=== PATIENT | male | born 1950 | race Two or more races ===

== ENCOUNTER 2017-02-13 09:01 | Inpatient (IN) | payer OTHER, MEDICAID ==
--- NOTE | 2017-02-13 09:17 | CPEKG ---
Heart Rate: 64 RR Interval: 938 P-R Interval: 196 QRSD Interval: 162 QT Interval: 456 QTC Interval: 471 P [place]: 68 QRS [place]: 48 T Wave [place]: 13 EKG Severity - ABNORMAL ECG - EKG Impression: SINUS RHYTHM EKG Impression: ATRIAL PREMATURE COMPLEX EKG Impression: RIGHT BUNDLE BRANCH BLOCK Electronically Signed By: Abby Garcia 13-Feb-2017 14:51:53
--- NOTE | 2017-02-13 09:28 | EDPHY ---
H & P Time Seen by Provider: 02/13/17 09:15 HPI/ROS: CHIEF COMPLAINT: Shortness of breath HISTORY OF PRESENT ILLNESS: Patient is a 66-year-old male with a history of AFib and a flutter status post ablation who presents emergency department with shortness of breath and dizziness. The patient states that in the past when he has had the symptoms it has been related to his atrial fibrillation and he has need cardioversion previously. Patient states his symptoms started roughly 2-3 days ago when he arrived in [place]. He took the train from [facility]. He has had no chest pain. He denies neck pain or arm discomfort. He has no leg pain or swelling. He has had no recent cough or fever. He denies palpitations, but states he has not had palpitations in the past with atrial fibrillation. REVIEW OF SYSTEMS: My complete review of systems is negative except as mentioned in the HPI. Past Medical/Surgical History: Includes atrial flutter and atrial fibrillation, depression, asthma, hypertension, melanoma Past surgical history: Ablation, bariatric surgery, tonsillectomy Social history: The patient is from [facility]. He does not smoke. Smoking Status: Former smoker Physical Exam: Vitals noted. 126/88, 72, 97% on room air GENERAL: Well-appearing, in no acute distress, alert. HEENT: Eyes normal to inspection, normal pharynx, no signs of dehydration. NECK: No thyromegaly, no lymphadenopathy, supple. RESPIRATORY: Clear to auscultation bilaterally, no rales, rhonchi or wheezing. CVS: Regular rate and rhythm, no rubs, murmurs, or gallops. ABDOMEN: Soft, nontender, nondistended, no organomegaly. Midline abdominal scar. BACK: Normal to inspection, no CVA tenderness. Surgical scar. SKIN: Normal color, no rash, warm, dry. No pallor. EXTREMITIES: No pedal edema, no calf tenderness, no Homans sign or cords, no joint swelling. NEURO/PSYCH: Alert and oriented x3, normal mood and affect, normal motor sensory exam. No obvious cranial nerve deficit. Constitutional: Initial Vital Signs Temperature (C) 36.2 C 02/13/17 09:17 Heart Rate 71 02/13/17 09:17 Respiratory Rate 20 02/13/17 09:17 Blood Pressure 174/97 H 02/13/17 09:17 O2 Sat (%) 95 02/13/17 09:17 O2 Delivery Mode Room Air Allergies/Adverse Reactions: No Known Allergies Allergy (Unverified 02/13/17 09:13) Home Medications: Medication Instructions Recorded Breo Ellipta 100-25 Mcg INH 02/13/17 Eliquis 02/13/17 Ferrous Sulfate 02/13/17 Incruse Ellipta 02/13/17 Lasix 02/13/17 Lisinopril 02/13/17 Nitrostat 02/13/17 OXcarbazepine 02/13/17 Pramipexole ER 02/13/17 Propafenone HCl 02/13/17 Prozac 20 MG (*) 02/13/17 Ventolin Hfa Inhaler 02/13/17 ZOLPIDEM TARTRATE 02/13/17 traZODone 02/13/17 Medical Decision Making ED Course/Re-evaluation: In the emergency department I discussed possible etiologies with the patient. I answered all his questions. IV was placed. Laboratory studies, EKG and chest x-ray were ordered. The patient was given aspirin 324 mg orally. It was noted the patient had a run of tachycardia. I reviewed this on the monitor strip. This was regular narrow complex tachycardia. There are multiple episodes of this tachycardia. There is also noted episodes of bigeminy. Sinus rhythm at 64. Normal axis. Right bundle branch block. No ST or T-wave changes. Patient's CBC, chemistry, troponin and D-dimer were negative. His BNP was in the 200s. I discussed the results with the patient. Answered all his questions. I discussed the case with the hospitalist service. Dr. Kumar will admit for further observation. Differential Diagnosis: My differential includes but is not limited to ACS, acute OH, atrial fibrillation, atrial flutter, ventricular tachycardia, dysrhythmia, electrolyte abnormality, sugar abnormality, pneumonia, pulmonary embolus, myocarditis, pericarditis - Data Points Laboratory Results: Laboratory Results 02/13/17 09:30 02/13/17 09:30 02/13/17 02/13/17 02/13/17 09:30 09:30 09:30 WBC 6.52 10^3/uL 10^3/uL (3.80-9.50) RBC 4.43 10^6/uL 10^6/uL (4.40-6.38) Hgb 14.3 g/dL g/dL (13.7-17.5) Hct 40.6 % % (40.0-51.0) MCV 91.6 fL fL (81.5-99.8) MCH 32.3 pg pg (27.9-34.1) MCHC 35.2 g/dL g/dL (32.4-36.7) RDW 12.9 % % (11.5-15.2) Plt Count 213 10^3/uL 10^3/uL (150-400) MPV 9.8 fL fL (8.7-11.7) Neut % (Auto) 47.7 % % (39.3-74.2) Lymph % (Auto) 32.5 % % (15.0-45.0) [place] % (Auto) 12.4 % % (4.5-13.0) Eos % (Auto) 6.3 % % (0.6-7.6) Baso % (Auto) 0.6 % % (0.3-1.7) Nucleat RBC Rel Count 0.0 % % (0.0-0.2) Absolute Neuts (auto) 3.11 10^3/uL 10^3/uL (1.70-6.50) Absolute Lymphs (auto) 2.12 10^3/uL 10^3/uL (1.00-3.00) Absolute Monos (auto) 0.81 10^3/uL H 10^3/uL (0.30-0.80) Absolute Eos (auto) 0.41 10^3/uL H 10^3/uL (0.03-0.40) Absolute Basos (auto) 0.04 10^3/uL 10^3/uL (0.02-0.10) Absolute Nucleated RBC 0.00 10^3/uL 10^3/uL (0-0.01) Immature Gran % 0.5 % % (0.0-1.1) Immature Gran # 0.03 10^3/uL 10^3/uL (0.00-0.10) D-Dimer < 0.27 ug/mLFEU ug/mLFEU (0.00-0.50) Sodium 141 mEq/L mEq/L (134-144) Potassium 3.8 mEq/L mEq/L (3.5-5.2) Chloride 102 mEq/L mEq/L (97-110) Carbon Dioxide 24 mEq/l mEq/l (22-31) Anion Gap 15 mEq/L mEq/L (8-16) BUN 19 mg/dL mg/dL (7-23) Creatinine 0.8 mg/dL mg/dL (0.7-1.3) Estimated GFR > 60 Glucose 97 mg/dL mg/dL (70-100) Calcium 9.6 mg/dL mg/dL (8.5-10.4) Troponin I 0.013 ng/mL ng/mL (0.000-0.034) NT-Pro-B Natriuret Pep 228 pg/mL H pg/mL (0-125) Medications Given: Discontinued Medications Aspirin (Aspirin) 324 mg PO EDNOW ONE Stop: 02/13/17 09:33 Last Admin: 02/13/17 09:50 Dose: 324 mg Departure - Departure Disposition: [facility] Inpatient Acute Clinical Impression: Shortness of breath, Tachycardia Condition: Good Referrals: OZ FRAZIER DO [Other] - As per Instructions
[2017-02-13] MEDS ORDERED: ASPIRIN 81 MG CHEWABLE TAB PO ONE (09:32)
[2017-02-13 09:48] LABS: % IMMATURE GRANULYOCYTES 0.5 % (0.0-1.1); ABSOLUTE IMMATURE GRANULOCYTES 0.03 10^3/uL (0.00-0.10); ADD DIFF? NO; ADD MORPH? NO; ADD SCAN? NO; ATYPICAL LYMPHOCYTE FLAG 0 (0-99); FRAGMENT RBC FLAG 0 (0-99); HEMATOCRIT 40.6 % (40.0-51.0); HEMOGLOBIN 14.3 g/dL (13.7-17.5); LEFT SHIFT FLG 0 (0-99); LIPEMIA HEMOLYSIS FLAG 90 (0-99); MEAN CELL HEMOGLOBIN 32.3 pg (27.9-34.1); MEAN CELL HEMOGLOBIN CONCENTR. 35.2 g/dL (32.4-36.7); MEAN CELL VOLUME 91.6 fL (81.5-99.8); MEAN PLATELET VOLUME 9.8 fL (8.7-11.7); PLATELET CLUMPS FLAG 0 (0-99); PLATELET COUNT 213 10^3/uL (150-400); RED BLOOD CELL COUNT 4.43 10^6/uL (4.40-6.38); RED CELL DISTRIBUTION WIDTH 12.9 % (11.5-15.2)
[2017-02-13 09:55] LABS: ANION GAP 15 mEq/L (8-16); CALCIUM 9.6 mg/dL (8.5-10.4); CARBON DIOXIDE 24 mEq/l (22-31); CHLORIDE 102 mEq/L (97-110); CREATININE 0.8 mg/dL (0.7-1.3); GLOMERULAR FILTRATION RATE > 60; GLUCOSE 97 mg/dL (70-100); POTASSIUM 3.8 mEq/L (3.5-5.2); SODIUM 141 mEq/L (134-144)
[2017-02-13 10:07] LABS: TROPONIN I 0.013 ng/mL (0.000-0.034)
[2017-02-13] MEDS ORDERED: ACETAMINOPHEN 325 MG TAB PO PRN (12:54)
[2017-02-13] MEDS ORDERED: ONDANSETRON 4 MG/2 ML VIAL IVP PRN (12:54)
[2017-02-13] MEDS ORDERED: ONDANSETRON DISINTEGRATING 4 MG TAB PO PRN (12:54)
[2017-02-13] MEDS ORDERED: ALBUTEROL 3 ML DEYVIAL IH PRN (12:54)
[2017-02-13] MEDS: amLODIPine BESYLATE 5 MG TAB PO SCH (13:29)
--- NOTE | 2017-02-13 14:34 | PDGENHP ---
History and Physical - History of Present Illness 66 yo male with h/o presented to ED with dyspnea. He arrived by train from [place] 3 days ago. Developed nasal congestion after his train ride. He also notes increased BP's, up to 160's systolic. This am, he noticed SOB and dizziness, which he describes as feeling a little unsteady on his feet. Denies orthopnea or PND. He endorses mild headache. No vision changes, but notes poor vision. Denies chest pain. The onset of his SOB was while walking from one room to another. No h/o heart failure. He has a h/o A flutter and is s/p ablation in 11/2016. He is anticoagulated on Eliquis. He had an exercise treadmill stress test last month that was reportedly normal. He is admitted to the hospital for evaluation of his SOB. History Information - Allergies/Home Medication List Allergies/Adverse Reactions: No Known Allergies Allergy (Unverified 02/13/17 09:13) Home Medications: Albuterol [Proventil Inhaler HFA (*)] 1 - 2 puffs IH DAILY PRN 02/13/17 [Last Taken Unknown] Albuterol [Proventil Inhaler HFA (*)] 1 - 2 puffs IH DAILY PRN 02/13/17 [Last Taken Unknown] Apixaban [Eliquis] 5 mg PO BID 02/13/17 [Last Taken 02/13/17] Ascorbic Acid [Vitamin C 500 mg (*)] 500 mg PO TIDMEAL 02/13/17 [Last Taken ] Cholecalciferol Vit D3 [Vitamin D3 2000 units tab (OTC)] 2,000 units PO BIDMEAL 02/13/17 [Last Taken 02/13/17] Cyanocobalamin [Vitamin B12 (*)] 100 mcg PO DAILY 02/13/17 [Last Taken 02/13/17] FLUoxetine [Prozac 20 MG (*)] 40 mg PO DAILY 02/13/17 [Last Taken 02/13/17] Ferrous Sulfate [Ferrous Sulf 325 MG (*)] 325 mg PO TIDMEAL 02/13/17 [Last Taken 02/13/17] Fluticasone/Vilanterol [Breo Ellipta 100-25 Mcg INH] 1 each IH DAILY 02/13/17 [ Last Taken 02/12/17] Folic Acid [Folic Acid 1 MG (*)] 1 mg PO DAILY 02/13/17 [Last Taken 02/13/17] Furosemide [Lasix 40 MG (*)] 40 mg PO DAILY 02/13/17 [Last Taken 02/13/17] Herbals/Supplements -Info Only 1 ea PO DAILY 02/13/17 [Last Taken Unknown] Lisinopril [Zestril 10 mg (*)] 10 mg PO DAILY 02/13/17 [Last Taken 02/13/17] Multivitamins [Multivitamin (*)] 1 each PO DAILY 02/13/17 [Last Taken 02/13/17] Nitroglycerin [Nitrostat 0.4 mg (*)] 0.4 mg SL Q5M PRN 02/13/17 [Last Taken Unknown] OXcarbazepine [Trileptal 300mg (*)] 300 mg PO BID 02/13/17 [Last Taken 02/13/17] Pramipexole Di-HCl [Mirapex 0.25 mg (*)] 0.25 - 0.5 mg PO HS 02/13/17 [Last Taken 02/12/17 0.25mg] Propafenone HCl [Rythmol Sr] 225 mg PO TID@06,,02/13/17 [Last Taken 08:00] Umeclidinium Carbon [Incruse Ellipta] 62.5 mcg IH DAILY 02/13/17 [Last Taken ] Zolpidem Tartrate [Ambien 10 mg] 10 mg PO HS PRN 02/13/17 [Last Taken 02/12/17] traZODone [traZODONE 100MG (*)] 200 mg PO HS 02/13/17 [Last Taken 02/12/17] I have personally reviewed and updated: family history, medical history, social history, surgical history - Past Medical History Additional medical history: Sleep apnea. Hypertension. Depression. COPD / asthma - Surgical History Reports: no pertinent surgical hx - Family History Positive for: non-pertinent - Social History Smoking Status: Former smoker Alcohol Use: None Drug Use: None Additional social history: Lives independently. Visiting from [place] Review of Systems Review of Systems: ROS: 10pt was reviewed & negative except for what was stated in HPI & below Physical Exam Physical Exam: Temp Pulse Resp BP Pulse Ox 36.6 C 65 18 176/105 H 94 02/13/17 12:10 02/13/17 12:10 02/13/17 12:10 02/13/17 12:11 02/13/17 12:10 Constitutional: no apparent distress Eyes: PERRL Ears, Nose, Mouth, Throat: moist mucous membranes Cardiovascular: regular rate and rhythym, no murmur, rub, or gallop Respiratory: no respiratory distress, clear to auscultation Gastrointestinal: normoactive bowel sounds, soft, non-tender abdomen Skin: warm Musculoskeletal: full muscle strength Neurologic: AAOx3 Psychiatric: interacting appropriately Lab Data & Imaging Review 02/13/17 09:30 02/13/17 09:30 WBC 6.52 10^3/uL (3.80-9.50) 02/13/17 09:30 RBC 4.43 10^6/uL (4.40-6.38) 02/13/17 09:30 Hgb 14.3 g/dL (13.7-17.5) 02/13/17 09:30 Hct 40.6 % (40.0-51.0) 02/13/17 09:30 MCV 91.6 fL (81.5-99.8) 02/13/17 09:30 MCH 32.3 pg (27.9-34.1) 02/13/17 09:30 MCHC 35.2 g/dL (32.4-36.7) 02/13/17 09:30 RDW 12.9 % (11.5-15.2) 02/13/17 09:30 Plt Count 213 10^3/uL (150-400) 02/13/17 09:30 MPV 9.8 fL (8.7-11.7) 02/13/17 09:30 Neut % (Auto) 47.7 % (39.3-74.2) 02/13/17 09:30 Lymph % (Auto) 32.5 % (15.0-45.0) 02/13/17 09:30 [place] % (Auto) 12.4 % (4.5-13.0) 02/13/17 09:30 Eos % (Auto) 6.3 % (0.6-7.6) 02/13/17 09:30 Baso % (Auto) 0.6 % (0.3-1.7) 02/13/17 09:30 Nucleat RBC Rel Count 0.0 % (0.0-0.2) 02/13/17 09:30 Absolute Neuts (auto) 3.11 10^3/uL (1.70-6.50) 02/13/17 09:30 Absolute Lymphs (auto) 2.12 10^3/uL (1.00-3.00) 02/13/17 09:30 Absolute Monos (auto) 0.81 10^3/uL (0.30-0.80) H 02/13/17 09:30 Absolute Eos (auto) 0.41 10^3/uL (0.03-0.40) H 02/13/17 09:30 Absolute Basos (auto) 0.04 10^3/uL (0.02-0.10) 02/13/17 09:30 Absolute Nucleated RBC 0.00 10^3/uL (0-0.01) 02/13/17 09:30 Immature Gran % 0.5 % (0.0-1.1) 02/13/17 09:30 Immature Gran # 0.03 10^3/uL (0.00-0.10) 02/13/17 09:30 D-Dimer < 0.27 ug/mLFEU (0.00-0.50) 02/13/17 09:30 Sodium 141 mEq/L (134-144) 02/13/17 09:30 Potassium 3.8 mEq/L (3.5-5.2) 02/13/17 09:30 Chloride 102 mEq/L (97-110) 02/13/17 09:30 Carbon Dioxide 24 mEq/l (22-31) 02/13/17 09:30 Anion Gap 15 mEq/L (8-16) 02/13/17 09:30 BUN 19 mg/dL (7-23) 02/13/17 09:30 Creatinine 0.8 mg/dL (0.7-1.3) 02/13/17 09:30 Estimated GFR > 60 02/13/17 09:30 Glucose 97 mg/dL (70-100) 02/13/17 09:30 Calcium 9.6 mg/dL (8.5-10.4) 02/13/17 09:30 Troponin I 0.013 ng/mL (0.000-0.034) 02/13/17 09:30 NT-Pro-B Natriuret Pep 228 pg/mL (0-125) H 02/13/17 09:30 Visualized and Interpreted Chest x-ray results: Yes Chest X-Ray results: other (possible right lung nodule, peribronchial thickening ) Visualized and Interpreted EKG results: Yes EKG Interpretation: Positive for: right bundle branch block Assessment & Plan Assessment: Dyspnea - Differential includes URI, COPD flare though no significant cough or wheezing, HF or less likely anginal variant. He reportedly has a negative exercise stress test just one month ago. Also consider hypertensive urgency as etiology of symptoms as his BP was quite elevated. [place], [place] have [place] symptoms from the [place]. -echo to eval LV function -send respiratory pathogen panel -prn nebs for possible COPD symptoms -trend troponin, repeat EKG Hypertensive urgency - his symptoms may be related to his elevated BP's. -norvasc now -increase lisinopril tomorrow RBBB - unclear if this is new. 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 -check echo Possible right lung nodule - check CT chest for better evaluation. SHANE - home CPAP Obesity - Could be some OHS contributing to dyspnea Depression / mood disorder - Stable. Cont Prozac, Trileptal. Full code Dispo - obs
[2017-02-13] MEDS ORDERED: NITROGLYCERIN 0.4 MG BTL SL PRN (14:36)
[2017-02-13] MEDS ORDERED: NON-FORMULARY NEW DRUG (Zolpidem Tartrate [Ambien 10 Mg] 10 MG) PO PRN (14:36)
[2017-02-13] MEDS ORDERED: FLUTICASONE IH SCH (14:45)
[2017-02-13] MEDS ORDERED: VILANTEROL IH SCH (14:45)
[2017-02-13] MEDS ORDERED: IOPAMIDOL (ISOVUE-300) 100 ML BTL ONE (15:30)
--- NOTE | 2017-02-13 16:49 | ECHO ---
[email or web address] [address] [address] Main: [phone] Fax: Transthoracic Echocardiogram Name: ANEESH NAVARRETE MR#: [id number] Study Date: 02/13/2017 Study Time: 01:58 PM Date of : 1950 Age: 66 year(s) Height: 177.8 cm (70 in.) Weight: 105.23 kg (232 lb.) BSA: 2.22 m2 Gender: Male Examination: Echo Indication: Cardiac: dyspnea Image Quality: Contrast: Requested by: Charu Gonzalez BP: 176 mmHg/105 mmHg Heart Rate: Rhythm: Indication: Cardiac: dyspnea Procedure Staff Manager Solution: Flor Sutton Reading Physician: Martin Infante Requesting Provider: Conclusions: Normal size left ventricle. Normal global systolic LV function. The ejection fraction is estimated to be 65-70 %. No regional wall motion abnormality. Normal size right ventricle. The right atrium is normal in size. The IVC is normal sized. No pericardial effusion. Measurements: Chambers Valvular Assessment AV/MV Valvular Assessment TV/PV Normal Normal Normal Name Value Range Name Value Range Name Value Range IVSd (2D): 1.0 cm (0.6 cm-1.1 AV Vmax: 1.22 m/s (1 m/s-1.7 cm) m/s) LVDd (2D): 5.2 cm (4.2 cm-5.9 AV maxP mmHg ( - ) cm) MV E Vmax: 0.77 m/s ( - ) LVDs (2D): 3.7 cm (2.1 cm-4 MV A Vmax: 0.82 m/s ( - ) cm) MV E/A: 0.94 ( - ) LVPWd (2D): 0.9 cm (0.6 cm-1 cm) LVEF (MOD4): 70 % (>=55 %) EF Range: 65-70 % Continued Measurements: Chambers Valvular Assessment AV/MV Name Value Name Value LADs: 4.7 cm MV E/E' Septal: 14.40 Patient: ANEESH NAVARRETE Study Date: 02/13/2017 Page 1 of 2 01:58 PM LADs Lon.5 cm MV E/E' Lateral: 13.60 LA Area: 21.8 cm2 TAPSE: 3.3 cm Additional Vessels Name Value Ao Ascendin.3 cm Findings: Left Ventricle: Normal size left ventricle. No LV hypertrophy. Normal global systolic LV function. The ejection fraction is estimated to be 65-70 %. No regional wall motion abnormality. Right Ventricle: Normal size right ventricle. Normal RV function. Left Atrium: The left atirum is borderline dilated. Right Atrium: The right atrium is normal in size. Mitral Valve: The mitral valve is normal in appearance and function. Mild mitral valve regurgitation is present. Aortic Valve: The aortic valve is normal in appearance and function. Tricuspid Valve: The tricuspid valve is normal in appearance and function. Trivial tricuspid valve regurgitation. Pulmonic Valve: Pulmonary valve not well visualized. Aorta: Mildly dilated ascending aorta measuring 4.3 cm. IVC: The IVC is normal sized. Pericardium: No pericardial effusion. (No Signature Object) Patient: ANEESH NAVARRETE Study Date: 02/13/2017 Page 2 of 2 01:58 PM [id number]
[2017-02-13] MEDS: FERROUS SULFATE 325 MG TAB PO SCH (17:35)
[2017-02-13] MEDS: APIXABAN 5 MG TAB PO SCH (20:58)
[2017-02-13] MEDS: OXcarbazepine 300 MG TAB PO SCH (20:58)
[2017-02-13] MEDS: PRAMIPEXOLE 0.25 MG TAB PO SCH (20:58)
[2017-02-13] MEDS: traZODone 100 MG TAB PO SCH (22:13)
[2017-02-13] MEDS: PROPAFENONE HCL SR 225 MG CAP PO SCH (22:13)
[2017-02-13] MEDS: ZOLPIDEM TARTRATE 5 MG TAB PO PRN (22:14)
--- NOTE | 2017-02-14 00:05 | CPEKG ---
Heart Rate: 117 RR Interval: 513 QRSD Interval: 146 QT Interval: 384 QTC Interval: 536 QRS [place]: 80 T Wave [place]: 41 EKG Severity - ABNORMAL ECG - EKG Impression: A-FLUTTER W/ PREDOM 2:1 AV BLOCK, A-RATE 263 EKG Impression: RIGHT BUNDLE BRANCH BLOCK EKG Impression: COMPARE WITH 02/13/2017 AT 9:12 AM, ATRIAL FLUTTER NOW PRESENT Electronically Signed By: Mohini Dorado 14-Feb-2017 09:13:05
[2017-02-14] MEDS: PROPAFENONE HCL SR 225 MG CAP PO SCH ×3 (05:33→22:08)
--- NOTE | 2017-02-14 08:19 | CPEKG ---
Heart Rate: 58 RR Interval: 1034 P-R Interval: 200 QRSD Interval: 152 QT Interval: 472 QTC Interval: 464 P [place]: 71 QRS [place]: 69 T Wave [place]: 33 EKG Severity - ABNORMAL ECG - EKG Impression: SINUS RHYTHM EKG Impression: RIGHT BUNDLE BRANCH BLOCK EKG Impression: COMPARED WITH 02/14/2017 AT 12:03 PM, NSR NOW PRESENT Electronically Signed By: Mohini Dorado 14-Feb-2017 09:12:25
--- NOTE | 2017-02-14 09:30 | HOSPPROG ---
Hospitalist Progress Note Assessment/Plan: Dyspnea - ?symptom of severe hypertension or related to paroxysms of flutter. Also consider bronchitis / URI, though resp pathogen panel neg. [place] have [place] symptoms from the [place]. BNP nl. D dimer neg. No CP. Trops neg. He reportedly had a negative exercise stress test just one month ago. Echo with nl EF, no WMA. -discussed with cards, who does not recommend further cardiac testing -cont nebs, BP control, a flutter management as below Hypertensive urgency - BP's improved today. -increased lisinopril -added metoprolol Paroxysmal atrial flutter - had flutter episode during the night but without significantly rapid rate, now converted to NSR -add low dose metoprolol, monitor on tele 1 more day to ensure no bradycardia or pauses -cont propafenone -cont eliquis for stroke prevention -needs outpt cardiac event monitor when he returns to [place] and close cardiology f/u RBBB - unclear if this is new. 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 Possible pancreatic tail mass - Seen on CT chest, which was ordered to eval possible right lung nodule (benign). -CT abd today for further evaluation SHANE - home CPAP Obesity - Could be some OHS contributing to dyspnea Depression / mood disorder - Stable. Cont Prozac, Trileptal. Full code Dispo - change to inpt for ongoing telemetry monitoring with addition of BB. Likely dc in am. Subjective: Pt feels ok. Less SOB. No CP. Eating/drinking well. No fevers/ chills. Objective: Vital Signs Temp Pulse Resp BP Pulse Ox 36.5 C 56 L 14 126/72 H 96 02/14/17 07:14 02/14/17 07:14 02/14/17 07:14 02/14/17 07:14 02/14/17 07:14 Microbiology 02/13/17 13:30 Respiratory Panel (PCR) - Final Nasal, Sinus - Anaerobic Tube/Swab No Organism Detected 02/13/17 02/14/17 02/15/17 05:59 05:59 05:59 Intake Total 400 Balance 400 - Physical Exam Constitutional: no apparent distress Eyes: PERRL Ears, Nose, Mouth, Throat: moist mucous membranes Cardiovascular: regular rate and rhythym Respiratory: no respiratory distress, clear to auscultation Gastrointestinal: normoactive bowel sounds, soft, non-tender abdomen Skin: warm Musculoskeletal: full muscle strength Neurologic: AAOx3 Psychiatric: interacting appropriately ICD10 Worksheet Patient Problems: Problems Problem Status Onset Shortness of breath Acute Tachycardia Acute
[2017-02-14] MEDS ORDERED: IOPAMIDOL (ISOVUE-300) 100 ML BTL ONE (10:01)
[2017-02-14] MEDS: Umeclidinium Bromide [Incruse Ellipta] 62.5 MCG) IH SCH (10:13)
[2017-02-14] MEDS: VILANTEROL IH SCH ×2 (10:17→10:18)
[2017-02-14] MEDS: FLUTICASONE IH SCH ×2 (10:17→10:18)
[2017-02-14] MEDS: FLUoxetine 20 MG CAP PO SCH (11:00)
[2017-02-14] MEDS: LISINOPRIL 10 MG TAB PO SCH (11:00)
[2017-02-14] MEDS: FUROSEMIDE 40 MG TAB PO SCH (11:02)
[2017-02-14] MEDS: OXcarbazepine 300 MG TAB PO SCH ×2 (11:02→20:54)
[2017-02-14] MEDS: METOPROLOL TARTRATE 25 MG TAB PO SCH ×2 (11:02→20:54)
[2017-02-14] MEDS: FERROUS SULFATE 325 MG TAB PO SCH ×3 (11:02→17:54)
[2017-02-14] MEDS: APIXABAN 5 MG TAB PO SCH ×2 (11:02→20:54)
--- NOTE | 2017-02-14 11:11 | ASMTCMCOM ---
CM Note CM Note Notes: Reviewed chart and discussed w/RN. Anticipate dc home independantly when medically stable. CM available for needs/changes. Date Signed: 02/14/2017 11:11 AM Electronically Signed By:Mary Andrade RN
[2017-02-14] MEDS: amLODIPine BESYLATE 5 MG TAB PO SCH (11:12)
--- NOTE | 2017-02-14 14:14 | PDMN ---
Medical Necessity Medical necessity: C/M review: Patient meets INPT criteria under [facility] M-97 Hypertension; Acute and persistent dyspnea - questionable symptom of severe hypertension or related to paroxysms of atrial flutter, hypertensive urgency highest BP 183/117, 02/14/2017 BP 151/89 11:00 AM, paroxysmal atrial flutter, possible pancreatic tail mass on CT requiring ongoing cardiac monitoring, pulse oximetry, close BP monitoring, nebs, increase oral lisinipril from 10 mg daily to 20 mg daily, add oral metopropolol 12.5 mf BID, comorbid RBBB- unclear if this is new, obstructive sleep apnea on home CPAP, obesity, depression / mood disorder. MD anticipates > 2 MN LOS for ongoing med nec for eval and TX of above.
[2017-02-14] MEDS: PRAMIPEXOLE 0.25 MG TAB PO SCH (20:54)
[2017-02-14] MEDS: ZOLPIDEM TARTRATE 5 MG TAB PO PRN (22:08)
[2017-02-14] MEDS: traZODone 100 MG TAB PO SCH (22:08)
[2017-02-15] MEDS: PROPAFENONE HCL SR 225 MG CAP PO SCH ×2 (05:43→14:15)
[2017-02-15] MEDS: Umeclidinium Bromide [Incruse Ellipta] 62.5 MCG) IH SCH (08:43)
[2017-02-15] MEDS: FLUTICASONE IH SCH (08:48)
[2017-02-15] MEDS: VILANTEROL IH SCH (08:48)
[2017-02-15] MEDS: APIXABAN 5 MG TAB PO SCH (09:56)
[2017-02-15] MEDS: FUROSEMIDE 40 MG TAB PO SCH (09:56)
[2017-02-15] MEDS: FERROUS SULFATE 325 MG TAB PO SCH ×2 (09:57→14:15)
[2017-02-15] MEDS: FLUoxetine 20 MG CAP PO SCH (09:57)
[2017-02-15] MEDS: LISINOPRIL 10 MG TAB PO SCH (09:57)
[2017-02-15] MEDS: OXcarbazepine 300 MG TAB PO SCH (09:57)
[2017-02-15] MEDS: METOPROLOL TARTRATE 25 MG TAB PO SCH (09:58)
--- NOTE | 2017-02-15 12:55 | ASMTCMCOM ---
CM Note CM Note Notes: Patient medically stable for discharge. No needs identified. CM available should needs arise. Date Signed: 02/15/2017 12:55 PM Electronically Signed By:Shannon Thompson RN
[2017-02-15 13:06] VITALS: BP 149/85; PULSE 71; RESP 18; TEMP 98.1; O2SAT 96
--- NOTE | 2017-02-15 13:52 | GDS ---
[f rep st] DISCHARGE SUMMARY ALL DIAGNOSES: 1. Dyspnea. 2. Hypertension. 3. Paroxysmal atrial flutter, status post ablation in November of this year. 4. Right bundle branch block. 5. 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 6. Obstructive sleep apnea on CPAP. 7. Obesity. HOSPITAL COURSE: 66-year-old man presented with dyspnea. Workup here was essentially negative. He is on Eliquis for atrial flutter, status post ablation. Echocardiogram was normal. Chest CT scan di d not show any pulmonary process. His telemetry in the middle of the night showed recurrence of atri al flutter though he has been otherwise in normal sinus rhythm. He was hypertensive which may have a ccounted for some of his symptoms. Changes in medications were discussed with Cardiology. His lisin opril was increased from 10 mg daily to 20 mg daily. Metoprolol was added at 12.5 mg p.o. b.i.d. He is also on propafenone for atrial flutter. Recommended that he follow up with his compliance field technician in 1 -2 weeks. He lives in [place] and will do this there. He also had a questionable abnormality of the pancreatic tail. It is possible that this represents p ancreatitis though he clinically does not have pancreatitis. Recommendation is for short followup wi th a repeat CAT scan in 4 months. I have told him this and he understands. He is discharged in stab le condition. FOLLOWUP: 1. Dr. Quispe, Cardiology, in [place] for ongoing management of his atrial flutter. Metoprolol 12.5 p.o. b .i.d. has been added. Lisinopril has been increased from 10 to 20 mg daily. 2. Primary care physician for questionable pancreatic tail mass. He needs an outpatient CT scan in 4 months to assess for stability. BILLING: I spent more than 30 minutes on the day of discharge coordinating care. /[id number]/MODL
--- NOTE | 2017-02-15 15:57 | ASDISCHSUM ---
Discharge Information Plan Status:Home with No Needs Medically Cleared to Leave:02/14/2017 Discharge Date:02/15/2017 02:25 PM CM D/C Disposition:Home, Routine, Self-Care ADT D/C Disposition:Home, Routine, Self-Care Projected Discharge Date:02/15/2017 02:25 PM Transportation at D/C: Discharge Delay Reason: Follow-Up Date:02/15/2017 02:25 PM Discharge Slot: Final Diagnosis: Placement Information Patient Contact Information Contact Name:SUSANNA Relationship:Sister Address: Home Phone: Work Phone: City:[place] Alternate Phone: [facility]/[place] Dash Code:[place] [address] Email: Financial Information Financial Class:HMO and PPO Plans Primary Plan Desc:[employer] Primary Plan Number:[id number] Secondary Plan Desc:[facility] Secondary Plan Number:[id number] Assessment Information [facility] CM Progress Note CM Note CM Note Notes: Reviewed chart and discussed w/RN. Anticipate dc home independantly when medically stable. CM available for needs/changes. Date Signed: 02/14/2017 11:11 AM Electronically Signed By:Mary Andrade RN [facility] CM Progress Note CM Note CM Note Notes: Patient medically stable for discharge. No needs identified. CM available should needs arise. Date Signed: 02/15/2017 12:55 PM Electronically Signed By:Shannon Thompson RN Intervention Information
== END 2017-02-15 14:25 | disposition home or self-care (01) | DRG 305 ==
LOC: CED 09:01 → CEDHOLD 10:35 → F2W 12:00 → OBSVTOIN 02-14 09:33
PROVIDERS: ADMIT Family Medicine; ATTEND Family Medicine
DX: I16.0 Hypertensive urgency (principal); R06.00 Dyspnea, unspecified; I48.0 Paroxysmal atrial fibrillation; I45.10 Unspecified right bundle-branch block; G47.33 Obstructive sleep apnea (adult) (pediatric); E66.9 Obesity, unspecified; E16.9 Disorder of pancreatic internal secretion, unspecified; Z87.891 Personal history of nicotine dependence; Z79.01 Long term (current) use of anticoagulants
CPT/HCPCS: 71020-PO; 80048-PO; 83880-PO; 84484-PO; 85025-PO; 85378-PO; G0378; Q9967